=== PATIENT | male | born 1965 | race Caucasian/White ===

== ENCOUNTER 2019-06-07 13:18 | Emergency (ER) | payer MEDICAID ==
[~2019-06-07] VITALS: Ht 170.2 cm; Wt 102.5 kg
[2019-06-07 13:38] VITALS: BP 112/84
== END 2019-06-07 16:12 | disposition home or self-care (01) ==
LOC: ER 13:23
DX: J06.9 Acute upper respiratory infection, unspecified (principal); E11.9 Type 2 diabetes mellitus without complications
CPT/HCPCS: 71045-TC